=== PATIENT | female | born 1980 | race Caucasian/White ===

== ENCOUNTER 2022-06-22 11:36 | Emergency (ER) | payer MEDICAID, SELFPAY ==
[2022-06-22 11:41] VITALS: BP 120/83; PULSE 114; RESP 14; TEMP 36.7; O2SAT 98
--- NOTE | 2022-06-22 11:47 | ED_ITS ---
HPI - Abdominal Pain General: Chief Complaint: Abdominal Pain Stated Complaint: sent for CT, urinary pain Time Seen by Provider: 06/22/22 11:42 History of Present Illness: Ms. Soto is a 41-year-old lady without significant past medical history presenting to the emergency department due to abdominal pain. She notes symptoms began a few days ago and were gradual in onset initially more suprapubic in nature. They have persisted since worsened with some pain in the right lower quadrant. She endorses worsening with movement and bumps in the road on the way here. She presented to clinic and was referred to the emergency department for concern over appendicitis. Denies urinary symptoms. Does have a history of tubal ligation. She reports a few month history of GI symptoms however these has not been particularly worse lately. Has had low-grade fevers and generalized malaise. Intensity symptoms is moderate to severe. Course has worsened. No other specific changes in h ealth, exacerbating, or alleviating factors identified. Onset (ago): day(s) Pain Consistency: constant Location: RLQ and Suprapubic Severity: moderate Quality: stabbing and aching Radiation: R flank Migration to: no migration Exacerbating factors: movement Relieving factors: nothing Associated Symptoms: Reports fever(s) ( Low-grade ) and nausea Review of Systems General: Reports: 10 or more systems reviewed and unremarkable except in HPI and below Const: Reports: fever(s) ( Low-grade ) GI: Reports: nausea [facility] ED PFSH: Medical History No significant past medical history Surgical History History of tubal ligation Physical Exam Const: COMMON NORMALS: alert GENERAL APPEARANCE: cooperative and well developed HENMT: COMMON NORMALS: normocephalic and atraumatic HEAD & SCALP: normocephalic and atraumatic Eye: COMMON NORMALS: conjunctivae normal CONJUNCTIVA: Yes conjunctivae normal SCLERA: sclerae normal Neck/C-Spine: COMMON NORMALS: supple GENERAL: Yes trachea midline Resp: COMMON NORMALS: clear to auscultation bilaterally EFFORT & INSPECTION: Yes able to speak in complete sentences AUSCULTATION: clear to auscultation bilaterally Cardio: COMMON NORMALS: regular rhythm RATE: tachycardic RHYTHM: regular rhythm GI: COMMON NORMALS: Soft to palpation PALPATION: Yes Soft to palpation, Yes Tenderness to palpation present (GI), Yes Guarding due to palpation present (GI) and No Rigid due to palpation Extremity: GENERAL: Yes normal exam except as noted and No edema Neuro: COMMON NORMALS: moves all extremities SENSORIUM/ORIENTATION: Yes alert and No Orientation impaired Psych: COMMON NORMALS: mental status grossly normal and Normal thought process present THOUGHT PROCESS: Normal thought process present Course Vital Signs: Vital signs: Vital Signs Temperature 98.0 F 06/22/22 11:41 Pulse Rate 88 06/22/22 15:00 Respiratory Rate 14 06/22/22 15:00 Blood Pressure 123/83 06/22/22 15:00 Pulse Oximetry 96 06/22/22 15:00 Oxygen Delivery Me thod 06/22/22 15:00 MDM - Abdominal Pain Medical Decision Making 41-year-old lady presenting with right lower quadrant abdominal pain referred from clinic. Patient is quite tender on exam however she is nontoxic and there is no evidence of acute surgical abdomen. Labs with no leukocytosis, normal hemoglobin, mild thrombocytosis. Metabolic panel with mild evidence of dehydration, no evidence of urinary tract infection. CT abdomen pelvis demonstrate inflammatory changes of the pelvis more on the left concerning for colitis versus diverticulitis. Given physical exam findings in comparison to imaging and the identification of ovarian cyst I believe that ultrasound is also appropriate for evaluation of pelvic organs. There is no evidence of ovarian torsion. Incidental findings discussed with patient including need for further evaluation of liver lesion. Patient feels improved with fluids, analgesia, antiemetic. She is able to tolerate p.o. intake. Most likely etiology of patient's symptoms is diverticulitis which will be treated with antibiotics. The results of ED evaluation were discussed with the patient including prescriptions and/or symptomatic cares (if applicable) including appropriate and responsible use, followup plan, and return precautions. The patient verbalized understanding and felt safe for discharge. Medical Records I reviewed the patient's medical records. Lab Data I reviewed the patient's lab results. 06/22/22 12:15 06/22/22 12:15 Labs/Radiology: Radiology Impressions Abdomen/Pelvis CT 06/22/22 13:03 IMPRESSION: 1. Inflammatory changes in the pelvis. This is adjacent to the left lateral wall of the distal sigmoid colon. Likely mild colitis versus diverticulitis although no definite diverticula are seen in the region. There are diverticula in other areas. 2. Ovarian cysts. 3. Normal appendix. 4. Indeterminate liver mass. Consider nonemergent MRI for follow-up. Pelvis Ultrasound 06/22/22 14:16 IMPRESSION: 1. No acute findings. 2. Multi fibroid uterus. Laboratory Results WBC 8.6 10^3/uL (4.0-10.0) 06/22/22 12:15 RBC 4.40 10^6/uL (4.1-5.3) 06/22/22 12:15 Hgb 12.5 g/dL (11.5-15.3) 06/22/22 12:15 Hct 39.7 % (37.0-47.0) 06/22/22 12:15 MCV 90.2 fl (81-99) 06/22/22 12:15 MCH 28.4 pg (28.0-34.0) 06/22/22 12:15 MCHC 31.5 g/dL (30.0-36.0) 06/22/22 12:15 RDW 13.4 % (12.1-15.1) 06/22/22 12:15 Plt Count 448 10^3/cmm (130-400) H 06/22/22 12:15 MPV 9.7 fL (7.4-10.4) 06/22/22 12:15 Neut % (Auto) 69.6 % 06/22/22 12:15 Lymph % (Auto) 22.3 % 06/22/22 12:15 Brule % (Auto) 6.2 % 06/22/22 12:15 Eos % (Auto) 0.9 % 06/22/22 12:15 Baso % (Auto) 0.5 % 06/22/22 12:15 Neut # (Auto) 6.00 10^3/uL (1.8-7.7) 06/22/22 12:15 Lymph # (Auto) 1.9 10^3/uL (0.8-4.8) 06/22/22 12:15 Brule # (Auto) 0.5 10^3/uL (0.2-0.9) 06/22/22 12:15 Eos # (Auto) 0.1 10^3/uL (0.0-0.8) 06/22/22 12:15 Baso # (Auto) 0.0 10^3/uL (0.0-0.1) 06/22/22 12:15 Nucleated RBC % (auto) 0 % 06/22/22 12:15 Nucleated RBCs # 0.0 /100WBC 06/22/22 12:15 Sodium 134 mmol/L (136-145) L 06/22/22 12:15 Potassium 3.5 mmol/L (3.5-5.1) 06/22/22 12:15 Chloride 98 mmol/L (98-107) 06/22/22 12:15 Carbon Dioxide 23 mmol/L (22-29) 06/22/22 12:15 Anion Gap 16.5 (5-19) 06/22/22 12:15 BUN 7 mg/dL (6-20) 06/22/22 12:15 Creatinine 0.6 mg/dL (0.5-0.9) 06/22/22 12:15 GFR Calculation 109.1 mL/min (90-130) 06/22/22 12:15 Glucose 154 mg/dL (65-115) H 06/22/22 12:15 Calculated Osmolality 279 mOsm/kg (285-295) L 06/22/22 12:15 Lactate 2.4 mmol/L (0.5-2.2) H 06/22/22 12:15 Calcium 9.0 mg/dL (8.5-10.5) 06/22/22 12:15 Total Bilirubin 0.4 mg/dL (0.15-1.2) 06/22/22 12:15 AST 11 U/L (0-32) 06/22/22 12:15 ALT 11 U/L (0-33) 06/22/22 12:15 Alkaline Phosphatase 96 U/L (35-105) 06/22/22 12:15 Total Protein 7.2 g/dL (6.6-8.7) 06/22/22 12:15 Albumin 3.9 g/dL (3.5-5.2) 06/22/22 12:15 Globulin 3.3 g/dL (1.3-4.6) 06/22/22 12:15 Lipase 20 U/L (13-60) 06/22/22 12:15 HCG, Qual Negative (Negative) 06/22/22 12:31 Urine Color Dark yellow (Yellow) 06/22/22 12:31 Urine Appearance Clear (CLEAR) 06/22/22 12:31 Urine pH 5 (5-7) 06/22/22 12:31 Ur Specific Porter 1.020 (1.005-1.030) 06/22/22 12:31 Urine Protein Neg (Negative) 06/22/22 12:31 Urine Glucose (UA) Norm (Normal) 06/22/22 12:31 Urine Ketones Negative (Negative) 06/22/22 12:31 Urine Blood Neg (Negative) 06/22/22 12:31 Urine Nitrate Negative (Negative) 06/22/22 12:31 Urine Bilirubin Neg (Negative) 06/22/22 12:31 Urine Urobilinogen 1 mg/dL (Negative) H 06/22/22 12:31 Ur Leukocyte Esterase Negative (Negative) 06/22/22 12:31 Discharge Plan Discharge Patient Disposition: Home Clinical Impression: Diverticulitis, Lesion of liver greater than 1 cm in diameter Condition: Stable Prescriptions: New oxycodone 5 mg tablet 5 mg PO Q4H PRN (Reason: pain) Qty: 10 0RF amoxicillin-pot clavulanate 875-125 mg tablet 1 tab PO BID Qty: 20 0RF ondansetron HCl 4 mg tablet 4 mg PO TID PRN (Reason: nausea and vomiting) Qty: 15 0RF Discharge Orders: Discharge ED (Routine); Ordered 06/22/22 Ordered By: Roddy Mullins Referrals: Yonathan Gay FNP [Primary Care Provider] - Discharge Diet: Advance as tolerated and Clear Liquid Discharge Activity: Increase activity as tolerated Patient Instructions: Abdominal Pain (ED), Colitis (ED), Opioid Safety Activity Restrictions/Additional Instructions: Thank you for visiting the emergency department. You were seen and evaluated for abdominal pain. The exact cause of your symptoms is unclear though may be related to colitis or diverticulitis. This will be treated with antibiotics, pain medication, antinausea medication. Please ensure that you are staying hydrated. You may use [id number] medications such as acetaminophen and ibuprofen for pain however please do not exceed the daily recommended dosage as listed on the packaging and please keep in mind that many namebrand medications contain the same active ingredients. Please avoid these medications if previously instructed to do so by another physician due to other underlying medical condition. I recommend follow-up with your primary care provider. As discussed you do have a lesion on your liver that needs better characterization by outpatient MRI. Return to the emergency department for worsening or uncontrolled symptoms or anything else that you are concerned about a feel needs emergency department evaluation Coding Level of Care Code ED Destination Sign Repairer for Benjamin Patel Exam Comprehensive
[2022-06-22 12:53] LABS: Alanine Aminotransferase 11 U/L (0-33); Albumin Level 3.9 g/dL (3.5-5.2); Alkaline Phosphatase 96 U/L (35-105); Anion Gap 16.5 (5-19); Aspartate Amino Transferase 11 U/L (0-32); Blood Urea Nitrogen 7 mg/dL (6-20); Carbon Dioxide 23 mmol/L (22-29); Chloride 98 mmol/L (98-107); Creatinine Clr Calc Pharmacy 105.8513; Globulin 3.3 g/dL (1.3-4.6); Glomerular Filtration Rate 109.1 mL/min (90-130); Glucose 154 mg/dL (65-115); Lactate (Lactic Acid level) 2.4 mmol/L (0.5-2.2); Lipase 20 U/L (13-60); Osmolality Calculated 279 mOsm/kg (285-295); Potassium 3.5 mmol/L (3.5-5.1); Sodium 134 mmol/L (136-145); Total Bilirubin 0.4 mg/dL (0.15-1.2); Total Protein 7.2 g/dL (6.6-8.7)
[2022-06-22 12:55] LABS: Basophils % 0.5 %; Eosinophils # 0.1 10^3/uL (0.0-0.8); Eosinophils % 0.9 %; Hematocrit 39.7 % (37.0-47.0); Hemoglobin 12.5 g/dL (11.5-15.3); Lymphocytes # 1.9 10^3/uL (0.8-4.8); Lymphocytes % 22.3 %; Mean Corpuscular HGB Conc 31.5 g/dL (30.0-36.0); Mean Corpuscular Hemoglobin 28.4 pg (28.0-34.0); Mean Corpuscular Volume 90.2 fl (81-99); Mean Platelet Volume 9.7 fL (7.4-10.4); Monocytes # 0.5 10^3/uL (0.2-0.9); Monocytes % 6.2 %; Neutrophils % 69.6 %; Nucleated Red Blood Cells % 0 %; Platelet Count 448 10^3/cmm (130-400); Red Cell Distribution Width 13.4 % (12.1-15.1); White Blood Count 8.6 10^3/uL (4.0-10.0)
[2022-06-22 13:01] LABS: Add Urine Microscopic? NO; Charge for UA Resulting for Rev
--- NOTE | 2022-06-22 13:03 | CTR_ITS ---
PROCEDURE INFORMATION: Exam: CT Abdomen And Pelvis With Contrast Exam date and time: 06/22/2022 1:44 PM Age: 41 years old Clinical indication: Abdominal pain; Localized; Right lower quadrant (rlq); Additional info: Rlq pain, ? appy TECHNIQUE: Imaging protocol: Computed tomography of the abdomen and pelvis with contrast. Radiation optimization: All CT scans at this facility use at least one of these dose optimization techniques: automated exposure control; mA and/or kV adjustment per patient size (includes targeted exams where dose is matched to clinical indication); or iterative reconstruction. Contrast material: OMNI 350; Contrast volume: 100 ml; Contrast route: INTRAVENOUS (IV); Other protocol: This patient has received 0 known CTs and 0 known cardiac nuclear medicine studies in the 12 months prior to the current study. COMPARISON: No relevant prior studies available. RADIATION DOSE METRICS: Total DLP (mGy-cm): 427.5 FINDINGS: Liver: Moderately fatty enlarged liver 211 mm. Indeterminate liver mass 12 mm image 09/07. Gallbladder and bile ducts: Normal. No calcified stones. No ductal dilation. Pancreas: Normal. No ductal dilation. Spleen: Normal. No splenomegaly. Adrenal glands: Normal. No mass. Kidneys and ureters: Normal. No hydronephrosis. Stomach and bowel: Moderate retained feces. Inflammatory changes in the pelvis just to the left of the distal sigmoid colon. There are no diverticula in the region however, this could be mild diverticulitis versus a focal colitis. There is no abscess. There is no free or focal air. Appendix: Unremarkable right lower quadrant appendix. Intraperitoneal space: Unremarkable. No free air. No significant fluid collection. Vasculature: Unremarkable. No abdominal aortic aneurysm. Lymph nodes: Lymph nodes are seen in the mesentery near the diverticulitis measuring up to 7 mm. Urinary bladder: Unremarkable as visualized. Reproductive: Ovarian cysts bilaterally up to 17 mm and 18 mm on the right and 16 mm on the left. Bones/joints: Unremarkable. No acute fracture. Soft tissues: Unremarkable. CT/CT abdomen pelvis w con* [id number] IMPRESSION: 1. Inflammatory changes in the pelvis. This is adjacent to the left lateral wall of the distal sigmoid colon. Likely mild colitis versus diverticulitis although no definite diverticula are seen in the region. There are diverticula in other areas. 2. Ovarian cysts. 3. Normal appendix. 4. Indeterminate liver mass. Consider nonemergent MRI for follow-up.
[2022-06-22 13:07] VITALS: RESP 14; O2SAT 97
[2022-06-22] MEDS: morphine 4 mg/mL SDV 1 mL IVP (13:07)
[2022-06-22] MEDS: sodium chloride 0.9% 1,000 ML 999 ML IV (13:07)
[2022-06-22 13:24] LABS: HCG Qualitative Urine. Negative (Negative)
[2022-06-22 13:30] LABS: Bilirubin Urine Neg (Negative); Blood Urine Neg (Negative); Glucose Urine UA Norm (Normal); Ketones Urine Negative (Negative); Leukocyte Esterase Urine Negative (Negative); Nitrate Urine Negative (Negative); Protein Urine Neg (Negative); Urine Appearance Clear (CLEAR); Urine Color Dark Yellow (Yellow); Urobilinogen Urine 1 mg/dL (Negative); pH Urine 5 (5-7)
[2022-06-22 14:10] VITALS: RESP 14
--- NOTE | 2022-06-22 14:16 | USR_ITS ---
PROCEDURE INFORMATION: Exam: US Nonobstetric Pelvis; Complete Exam date and time: 06/22/2022 3:10 PM Age: 41 years old Clinical indication: Pelvic pain; Patient HX: Lmp 05/25/2022. 0; Additional info: Rlq pain, eval torsion TECHNIQUE: Imaging protocol: Transabdominal pelvic nonobstetric ultrasound. Complete exam. Real time ultrasound with image documentation. COMPARISON: CT abdomen pelvis w con* [id number] 06/22/2022 1:44 PM FINDINGS: Uterus: The uterus measures 10.2 x 5.3 x 6.1 cm. Subserosal fibroid noted along the posterior uterine body measuring 2.4 x 1.4 x 2.4 cm. There is an intramural fibroid at the uterine fundus measuring 1.3 x 1.1 x 1.6 cm. Intramural fibroid within the uterine body measures 0.8 x 0.5 x 0.8 cm. Endometrial stripe is normal measuring 7 mm in thickness. Right ovary/adnexa: The right ovary measures 2.3 x 1.8 x 2.2 cm. No mass. Normal blood flow. Left ovary/adnexa: The left ovary measures 3.2 x 2.0 x 2.7 cm. No mass. Normal blood flow. Intraperitoneal space: No intraperitoneal fluid. Urinary bladder: Normal. US/US pelvic complete* [id number] IMPRESSION: 1. No acute findings. 2. Multi fibroid uterus.
[2022-06-22 15:00] VITALS: BP 123/83; PULSE 88; RESP 14; O2SAT 96
== END 2022-06-22 17:12 | disposition home or self-care (01) ==
PROVIDERS: Emergency Provider Emergency Medicine; PCP Nurse Practitioner Family
DX: K57.92 Diverticulitis of intestine, part unspecified, without perforation or abscess without bleeding (principal); K76.9 Liver disease, unspecified
CPT/HCPCS: 36415; 74177; 76856; 80053; 81000; 81003; 81025; 83605; 83690; 85025; 87040; 96361; 96374; 99285; J2270; J7030; Q9967

== ENCOUNTER 2022-07-22 10:36 | Outpatient (CLI) | payer MEDICAID, SELFPAY ==
--- NOTE | 2022-07-22 11:07 | MR_ITS ---
WS: [id number] MRI OF THE ABDOMEN WITHOUT AND WITH GADOLINIUM ENHANCEMENT TECHNIQUE: Axial T2, dual Echo, axial 2-D fiesta, coronal 2-D fiesta, axial T1, and postgadolinium mu ltiplanar fat saturated imaging was obtained CLINICAL INFORMATION: OTHER SPECIFIED DZ OF LIVER COMPARISON: CT June 22, 2022 FINDINGS: Mild hepatomegaly. Diffuse fatty infiltration liver. Normal spleen. Normal GE junction. Normal gallbl adder. Normal portal vein and splenic vein. Adrenal glands are normal. Normal renal parenchymal enhan cement. No hydronephrosis. Celiac and SMA are patent. Normal caliber abdominal aorta. Again seen is the RIGHT hepatic lesion measuring approximately 1.4 cm unchanged with T2 hyperintensit y. Post gadolinium imaging demonstrates initial enhancement suspicious for flash cavernous hemangioma Additional smaller lesions in the dome of the liver and undersurface the RIGHT hepatic lobe with T2 h yperintensity in the more typical hemangioma enhancement pattern with peripheral globular enhancement . MR/MR abdomen wo/w con* [id number] Impression: 1. 1.4 cm RIGHT hepatic lesion with T2 hyperintensity. This demonstrates initi al enhancement and most likely represents flash hemangioma. If concern for meta static disease PET/CT to be performed. 2. Additional smaller T2 hyperintense lesions measuring approximately 10 mm. T 2 hyperintense lesions with a more typical hemangioma enhancement pattern invol ving the liver dome and undersurface of the RIGHT hepatic lobe near the IVC. Pe ripheral globular enhancement typical for benign cavernous hemangioma. 3. Hepatomegaly with diffuse fatty infiltration liver.
[2022-07-22] MEDS: gadobenate dimeglumine 20 mL vial IV (11:59)
== END 2022-07-22 10:37 | disposition home or self-care (01) ==
LOC: RAD 10:39
PROVIDERS: PCP Nurse Practitioner Family; Visit Provider Nurse Practitioner Family
DX: K76.89 Other specified diseases of liver (principal)
CPT/HCPCS: 74183; A9577

== ENCOUNTER 2022-12-11 14:00 | Oncology outpatient (recurring) (ONCR) | payer MEDICAID, SELFPAY ==
[2022-12-09 08:20] VITALS: BP 113/75; PULSE 76; RESP 18; TEMP 37.1; O2SAT 100
[2022-12-09 08:40] LABS: Basophils # 0.1 10^3/uL (0.0-0.1); Eosinophils # 0.1 10^3/uL (0.0-0.8); Eosinophils % 1.8 %; Hematocrit 35.5 % (37.0-47.0); Hemoglobin 11.2 g/dL (11.5-15.3); Lymphocytes # 1.9 10^3/uL (0.8-4.8); Lymphocytes % 30.5 %; Mean Corpuscular HGB Conc 31.5 g/dL (30.0-36.0); Mean Corpuscular Hemoglobin 26.4 pg (28.0-34.0); Mean Corpuscular Volume 83.7 fl (81-99); Monocytes # 0.5 10^3/uL (0.2-0.9); Monocytes % 8.6 %; Neutrophils # 3.55 10^3/uL (1.8-7.7); Neutrophils % 57.8 %; Nucleated Red Blood Cells % 0 %; Platelet Count 290 10^3/cmm (130-400); Red Blood Count 4.24 10^6/uL (4.1-5.3); Red Cell Distribution Width 15.1 % (12.1-15.1); White Blood Count 6.1 10^3/uL (4.0-10.0)
[2022-12-09 09:23] LABS: Carcinoembryonic Antigen 1.4 ng/mL (0.0-4.7)
[2022-12-09 09:34] LABS: Alanine Aminotransferase 14 U/L (0-33); Albumin Level 3.8 g/dL (3.5-5.2); Alkaline Phosphatase 72 U/L (35-105); Anion Gap 15.6 (5-19); Aspartate Amino Transferase 13 U/L (0-32); Blood Urea Nitrogen 10 mg/dL (6-20); Calcium 8.7 mg/dL (8.5-10.5); Carbon Dioxide 22 mmol/L (22-29); Chloride 105 mmol/L (98-107); Creatinine Clr Calc Pharmacy 74.5586; Globulin 2.6 g/dL (1.3-4.6); Glomerular Filtration Rate 77.9 mL/min (90-130); Glucose 98 mg/dL (65-115); Osmolality Calculated 287 mOsm/kg (285-295); Potassium 3.6 mmol/L (3.5-5.1); Sodium 139 mmol/L (136-145); Total Bilirubin 0.2 mg/dL (0.15-1.2); Total Protein 6.4 g/dL (6.6-8.7)
[2022-12-09] MEDS: dextrose 5% 250 ML 75 ML IV (10:56)
[2022-12-09] MEDS: palonosetron 0.25 mg/5 mL SDV IVP (10:56)
[2022-12-09 11:00] VITALS: BMI 24.9
[2022-12-09] MEDS: oxaliplatin 100 MG, oxaliplatin 34 MG in dextrose 5% 250 ML 69.2 MG IV (11:43)
[2022-12-09] MEDS: fluorouraciL 3,800 MG, elastomeric pump 1 PUMP in sodium chloride 0.9% (100 ml) 16 ML IV (15:05)
[2022-12-09 15:15] VITALS: BP 124/83; PULSE 91; RESP 16; TEMP 37.1; O2SAT 98
[2022-12-11 15:46] VITALS: BP 115/78; PULSE 78; TEMP 36.8; O2SAT 100
== END 2022-12-22 23:59 | disposition home or self-care (01) ==
PROVIDERS: Nurse Practitioner Family; PCP Nurse Practitioner Family; Visit Provider Internal Medicine Medical Oncology
DX: C18.7 Malignant neoplasm of sigmoid colon (principal)
CPT/HCPCS: 80053; 82378; 85025; 96367; 96375; 96413; 96415; 96416; 96523; J0640; J1100; J1642; J2469; J7060; J9190; J9263

== ENCOUNTER 2023-01-22 13:30 | Oncology outpatient (recurring) (ONCR) | payer MEDICAID, SELFPAY ==
[2022-12-23 08:07] VITALS: BMI 24.9
[2022-12-23 08:09] VITALS: BP 116/76; PULSE 91; RESP 18; TEMP 36.6; O2SAT 99
[2022-12-23 08:21] LABS: Basophils # 0.1 10^3/uL (0.0-0.1); Basophils % 1.8 %; Eosinophils # 0.2 10^3/uL (0.0-0.8); Eosinophils % 3.2 %; Hematocrit 36.8 % (37.0-47.0); Hemoglobin 11.6 g/dL (11.5-15.3); Lymphocytes # 1.6 10^3/uL (0.8-4.8); Lymphocytes % 33.2 %; Mean Corpuscular HGB Conc 31.5 g/dL (30.0-36.0); Mean Corpuscular Hemoglobin 26.3 pg (28.0-34.0); Mean Corpuscular Volume 83.4 fl (81-99); Mean Platelet Volume 9.6 fL (7.4-10.4); Monocytes # 0.5 10^3/uL (0.2-0.9); Monocytes % 10.5 %; Neutrophils # 2.51 10^3/uL (1.8-7.7); Neutrophils % 50.9 %; Nucleated Red Blood Cells % 0 %; Platelet Count 207 10^3/cmm (130-400); Red Blood Count 4.41 10^6/uL (4.1-5.3); Red Cell Distribution Width 14.9 % (12.1-15.1); White Blood Count 4.9 10^3/uL (4.0-10.0)
[2022-12-23 08:42] LABS: Alanine Aminotransferase 22 U/L (0-33); Albumin Level 3.9 g/dL (3.5-5.2); Alkaline Phosphatase 78 U/L (35-105); Anion Gap 15.7 (5-19); Aspartate Amino Transferase 19 U/L (0-32); Blood Urea Nitrogen 6 mg/dL (6-20); Calcium 8.9 mg/dL (8.5-10.5); Carbon Dioxide 24 mmol/L (22-29); Chloride 105 mmol/L (98-107); Creatinine Clr Calc Pharmacy 74.5586; Globulin 2.8 g/dL (1.3-4.6); Glomerular Filtration Rate 77.9 mL/min (90-130); Glucose 120 mg/dL (65-115); Osmolality Calculated 291 mOsm/kg (285-295); Potassium 3.7 mmol/L (3.5-5.1); Sodium 141 mmol/L (136-145); Total Bilirubin 0.2 mg/dL (0.15-1.2); Total Protein 6.7 g/dL (6.6-8.7)
[2022-12-23 10:27] VITALS: BP 124/78; PULSE 74; RESP 16; TEMP 36.6; O2SAT 99
[2022-12-23 10:49] LABS: Iron 33 ug/dL (37-145); Percent Saturation 10.3 % (20-50); Total Iron Binding Capacity 319 mcg/dl; Unsaturated Iron Binding 286 ug/dL (112-347)
[2022-12-23] MEDS: dextrose 5% 250 ML 100 ML IV (10:57)
[2022-12-23] MEDS: palonosetron 0.25 mg/5 mL SDV IVP (10:58)
[2022-12-23] MEDS: DEXTROSE 5% IV (11:31)
[2022-12-23] MEDS: OXALIPLATIN IV (11:31)
[2022-12-23 13:40] VITALS: BP 126/78; PULSE 80; RESP 16; TEMP 36.4; O2SAT 98
[2022-12-23] MEDS: fluorouraciL 3,800 MG, elastomeric pump 1 PUMP in sodium chloride 0.9% (100 ml) 16 ML IV (13:41)
[2022-12-25 14:06] VITALS: BP 115/81; PULSE 71; RESP 18; TEMP 36.6; O2SAT 99
[2022-12-25 14:18] VITALS: BP 132/72; PULSE 84; RESP 18; TEMP 36.7; O2SAT 98
[2023-01-06 08:25] VITALS: BMI 25.1
[2023-01-06 08:26] VITALS: BP 110/74; PULSE 90; RESP 18; TEMP 36.7; O2SAT 99
[2023-01-06 08:38] LABS: Basophils # 0.1 10^3/uL (0.0-0.1); Basophils % 1.3 %; Eosinophils # 0.3 10^3/uL (0.0-0.8); Eosinophils % 5.3 %; Hematocrit 35.6 % (37.0-47.0); Hemoglobin 11.5 g/dL (11.5-15.3); Lymphocytes # 1.9 10^3/uL (0.8-4.8); Lymphocytes % 31.1 %; Mean Corpuscular HGB Conc 32.3 g/dL (30.0-36.0); Mean Corpuscular Hemoglobin 26.6 pg (28.0-34.0); Mean Corpuscular Volume 82.4 fl (81-99); Mean Platelet Volume 9.5 fL (7.4-10.4); Monocytes # 0.5 10^3/uL (0.2-0.9); Monocytes % 8.2 %; Neutrophils # 3.33 10^3/uL (1.8-7.7); Neutrophils % 53.6 %; Nucleated Red Blood Cells % 0 %; Platelet Count 162 10^3/cmm (130-400); Red Blood Count 4.32 10^6/uL (4.1-5.3); Red Cell Distribution Width 14.7 % (12.1-15.1); White Blood Count 6.2 10^3/uL (4.0-10.0)
[2023-01-06 09:00] LABS: Alanine Aminotransferase 20 U/L (0-33); Albumin Level 3.9 g/dL (3.5-5.2); Alkaline Phosphatase 79 U/L (35-105); Anion Gap 17.6 (5-19); Aspartate Amino Transferase 19 U/L (0-32); Blood Urea Nitrogen 10 mg/dL (6-20); Calcium 8.9 mg/dL (8.5-10.5); Carbon Dioxide 23 mmol/L (22-29); Chloride 104 mmol/L (98-107); Globulin 2.7 g/dL (1.3-4.6); Glomerular Filtration Rate 90.9 mL/min (90-130); Glucose 144 mg/dL (65-115); Osmolality Calculated 294 mOsm/kg (285-295); Potassium 3.6 mmol/L (3.5-5.1); Sodium 141 mmol/L (136-145); Total Bilirubin 0.2 mg/dL (0.15-1.2); Total Protein 6.6 g/dL (6.6-8.7)
[2023-01-06] MEDS: dextrose 5% 250 ML 75 ML IV (10:30)
[2023-01-06] MEDS: palonosetron 0.25 mg/5 mL SDV IVP (11:02)
[2023-01-06] MEDS: DEXTROSE 5% IV (11:12)
[2023-01-06] MEDS: OXALIPLATIN IV (11:12)
[2023-01-06] MEDS: fluorouraciL 3,800 MG, elastomeric pump 1 PUMP in sodium chloride 0.9% (100 ml) 16 ML IV (15:40)
[2023-01-06 16:19] VITALS: BP 124/82; PULSE 88; RESP 18; TEMP 36.8; O2SAT 98
[2023-01-08 13:58] VITALS: BP 118/76; PULSE 76; RESP 16; TEMP 36.8; O2SAT 99
[2023-01-20 07:57] VITALS: BP 115/77; PULSE 77; RESP 18; TEMP 36.3; O2SAT 98; BMI 24.5
[2023-01-20 08:19] LABS: Basophils # 0.1 10^3/uL (0.0-0.1); Basophils % 1.5 %; Eosinophils # 0.1 10^3/uL (0.0-0.8); Eosinophils % 2.4 %; Hematocrit 36.8 % (36-47); Lymphocytes # 1.5 10^3/uL (0.8-4.8); Lymphocytes % 28.7 %; Mean Corpuscular HGB Conc 32.1 g/dL (30-55); Mean Corpuscular Hemoglobin 27.3 pg (27-33); Mean Corpuscular Volume 85.2 fl (85-98); Mean Platelet Volume 9.6 fL (7.4-10.4); Monocytes # 0.5 10^3/uL (0.2-0.9); Monocytes % 9.9 %; Neutrophils # 3.03 10^3/uL (1.8-7.7); Neutrophils % 56.9 %; Nucleated Red Blood Cells % 0 %; Platelet Count 159 10^3/cmm (157-399); Red Blood Count 4.32 10^6/uL (3.85-5.65); Red Cell Distribution Width 16.5 % (12.1-15.1); White Blood Count 5.33 10^3/uL (3.29-11.43)
[2023-01-20 08:36] LABS: Alanine Aminotransferase 19 U/L (0-33); Alkaline Phosphatase 72 U/L (35-105); Anion Gap 12.5 (5-19); Aspartate Amino Transferase 17 U/L (0-32); Blood Urea Nitrogen 8 mg/dL (6-20); Calcium 8.5 mg/dL (8.5-10.5); Carbon Dioxide 26 mmol/L (22-29); Chloride 106 mmol/L (98-107); Globulin 2.5 g/dL (1.3-4.6); Glomerular Filtration Rate 90.9 mL/min (90-130); Glucose 95 mg/dL (65-115); Osmolality Calculated 290 mOsm/kg (285-295); Potassium 3.5 mmol/L (3.5-5.1); Sodium 141 mmol/L (136-145); Total Bilirubin 0.2 mg/dL (0.15-1.2); Total Protein 6.5 g/dL (6.6-8.7)
[2023-01-20] MEDS: dextrose 5% 250 ML 75 ML IV (09:59)
[2023-01-20] MEDS: palonosetron 0.25 mg/5 mL SDV IVP (10:00)
[2023-01-20] MEDS: fluorouraciL 3,800 MG, elastomeric pump 1 PUMP in sodium chloride 0.9% (100 ml) 16 ML IV (12:36)
[2023-01-20 12:40] VITALS: BP 120/75; PULSE 69; RESP 16; TEMP 36.2; O2SAT 98
== END 2023-01-22 23:59 | disposition home or self-care (01) ==
PROVIDERS: Nurse Practitioner Family; PCP Nurse Practitioner Family; Visit Provider Internal Medicine Medical Oncology
DX: Z45.1 Encounter for adjustment and management of infusion pump (principal)
CPT/HCPCS: 80053; 83540; 83550; 85025; 96367; 96368; 96375; 96413; 96415; 96416; 96523; J0640; J1100; J1642; J2469; J7060; J9190; J9263

== ENCOUNTER 2023-02-19 14:00 | Oncology outpatient (recurring) (ONCR) | payer MEDICAID, SELFPAY ==
[2023-02-03 08:01] VITALS: BP 103/72; PULSE 78; RESP 18; TEMP 36.3; O2SAT 100; BMI 24.9
[2023-02-03 08:13] LABS: Basophils # 0.1 10^3/uL (0.0-0.1); Basophils % 1.7 %; Eosinophils # 0.2 10^3/uL (0.0-0.8); Eosinophils % 3.2 %; Hematocrit 36.5 % (36-47); Lymphocytes # 1.7 10^3/uL (0.8-4.8); Lymphocytes % 36.5 %; Mean Corpuscular HGB Conc 32.1 g/dL (30-55); Mean Corpuscular Hemoglobin 27.6 pg (27-33); Mean Corpuscular Volume 86.1 fl (85-98); Mean Platelet Volume 9.9 fL (7.4-10.4); Monocytes # 0.5 10^3/uL (0.2-0.9); Neutrophils # 2.25 10^3/uL (1.8-7.7); Neutrophils % 48.2 %; Nucleated Red Blood Cells % 0 %; Platelet Count 132 10^3/cmm (157-399); Red Blood Count 4.24 10^6/uL (3.85-5.65); Red Cell Distribution Width 17.6 % (12.1-15.1); White Blood Count 4.68 10^3/uL (3.29-11.43)
[2023-02-03 08:44] LABS: Alanine Aminotransferase 20 U/L (0-33); Albumin Level 4.1 g/dL (3.5-5.2); Alkaline Phosphatase 75 U/L (35-105); Anion Gap 12.6 (5-19); Aspartate Amino Transferase 21 U/L (0-32); Blood Urea Nitrogen 8 mg/dL (6-20); Calcium 8.7 mg/dL (8.5-10.5); Carbon Dioxide 25 mmol/L (22-29); Chloride 107 mmol/L (98-107); Creatinine Clr Calc Pharmacy 74.5586; Globulin 2.2 g/dL (1.3-4.6); Glomerular Filtration Rate 77.9 mL/min (90-130); Glucose 115 mg/dL (65-115); Osmolality Calculated 291 mOsm/kg (285-295); Potassium 3.6 mmol/L (3.5-5.1); Sodium 141 mmol/L (136-145); Total Bilirubin 0.3 mg/dL (0.15-1.2); Total Protein 6.3 g/dL (6.6-8.7)
[2023-02-03] MEDS: dextrose 5% 250 ML 75 ML IV (10:09)
[2023-02-03] MEDS: palonosetron 0.25 mg/5 mL SDV IVP (10:10)
[2023-02-03] MEDS: fluorouraciL 3,800 MG, elastomeric pump 1 PUMP in sodium chloride 0.9% (100 ml) 16 ML IV (12:42)
[2023-02-03 12:45] VITALS: BP 113/76; PULSE 70; RESP 16; TEMP 37.1; O2SAT 99
[2023-02-17 08:48] VITALS: BP 122/82; PULSE 80; RESP 16; TEMP 36.8; O2SAT 98
[2023-02-17 09:03] LABS: Basophils % 0.9 %; Eosinophils # 0.1 10^3/uL (0.0-0.8); Eosinophils % 1.3 %; Hematocrit 37.2 % (36-47); Lymphocytes # 1.3 10^3/uL (0.8-4.8); Lymphocytes % 27.5 %; Mean Corpuscular HGB Conc 32.5 g/dL (30-55); Mean Corpuscular Hemoglobin 28.4 pg (27-33); Mean Corpuscular Volume 87.3 fl (85-98); Mean Platelet Volume 9.1 fL (7.4-10.4); Monocytes # 0.6 10^3/uL (0.2-0.9); Neutrophils % 57.9 %; Nucleated Red Blood Cells % 0 %; Platelet Count 153 10^3/cmm (157-399); Red Blood Count 4.26 10^6/uL (3.85-5.65); Red Cell Distribution Width 17.9 % (12.1-15.1); White Blood Count 4.66 10^3/uL (3.29-11.43)
[2023-02-17 09:32] LABS: Alanine Aminotransferase 19 U/L (0-33); Albumin Level 3.7 g/dL (3.5-5.2); Alkaline Phosphatase 94 U/L (35-105); Anion Gap 12.4 (5-19); Aspartate Amino Transferase 22 U/L (0-32); Blood Urea Nitrogen 7 mg/dL (6-20); Calcium 8.8 mg/dL (8.5-10.5); Carbon Dioxide 27 mmol/L (22-29); Chloride 104 mmol/L (98-107); Globulin 2.8 g/dL (1.3-4.6); Glomerular Filtration Rate 90.9 mL/min (90-130); Glucose 97 mg/dL (65-115); Osmolality Calculated 288 mOsm/kg (285-295); Potassium 3.4 mmol/L (3.5-5.1); Sodium 140 mmol/L (136-145); Total Bilirubin 0.3 mg/dL (0.15-1.2); Total Protein 6.5 g/dL (6.6-8.7)
[2023-02-17] MEDS: dextrose 5% 250 ML 75 ML IV (10:46)
[2023-02-17] MEDS: palonosetron 0.25 mg/5 mL SDV IVP (10:49)
[2023-02-17] MEDS: fluorouraciL 3,800 MG, elastomeric pump 1 PUMP in sodium chloride 0.9% (100 ml) 16 ML IV (14:10)
[2023-02-17 14:26] VITALS: BP 123/76; PULSE 87; RESP 18; TEMP 36.9; O2SAT 98
[2023-02-19 13:05] VITALS: BP 120/75; PULSE 101; RESP 18; TEMP 36.6; O2SAT 98
== END 2023-02-21 23:59 | disposition home or self-care (01) ==
PROVIDERS: PCP Nurse Practitioner Family; Visit Provider Internal Medicine Medical Oncology
DX: Z45.1 Encounter for adjustment and management of infusion pump (principal)
CPT/HCPCS: 80053; 85025; 96365; 96366; 96367; 96368; 96375; 96413; 96415; 96416; 96523; J0640; J1100; J1642; J2469; J7060; J9190; J9263

== ENCOUNTER 2023-03-19 13:30 | Oncology outpatient (recurring) (ONCR) | payer MEDICAID, SELFPAY ==
[2023-03-03 09:16] VITALS: BP 116/75; PULSE 74; RESP 16; TEMP 36.4; O2SAT 96
[2023-03-03 09:34] LABS: Basophils % 1.1 %; Eosinophils # 0.1 10^3/uL (0.0-0.8); Eosinophils % 1.6 %; Hematocrit 36.7 % (36-47); Lymphocytes # 1.4 10^3/uL (0.8-4.8); Mean Corpuscular Hemoglobin 29.5 pg (27-33); Mean Corpuscular Volume 89.5 fl (85-98); Mean Platelet Volume 9.6 fL (7.4-10.4); Monocytes # 0.6 10^3/uL (0.2-0.9); Monocytes % 15.3 %; Neutrophils # 1.61 10^3/uL (1.8-7.7); Nucleated Red Blood Cells % 0 %; Platelet Count 151 10^3/cmm (157-399); Red Cell Distribution Width 18.4 % (12.1-15.1); White Blood Count 3.66 10^3/uL (3.29-11.43)
[2023-03-03 10:00] LABS: Carcinoembryonic Antigen 1.6 ng/mL (0.0-4.7)
[2023-03-03 10:11] LABS: Alanine Aminotransferase 22 U/L (0-33); Albumin Level 4.2 g/dL (3.5-5.2); Alkaline Phosphatase 96 U/L (35-105); Anion Gap 13.9 (5-19); Aspartate Amino Transferase 23 U/L (0-32); Blood Urea Nitrogen 8 mg/dL (6-20); Calcium 8.8 mg/dL (8.5-10.5); Carbon Dioxide 25 mmol/L (22-29); Chloride 107 mmol/L (98-107); Globulin 2.8 g/dL (1.3-4.6); Glomerular Filtration Rate 90.9 mL/min (90-130); Glucose 93 mg/dL (65-115); Osmolality Calculated 292 mOsm/kg (285-295); Potassium 3.9 mmol/L (3.5-5.1); Sodium 142 mmol/L (136-145); Total Bilirubin 0.4 mg/dL (0.15-1.2)
[2023-03-03] MEDS: dextrose 5% 250 ML 75 ML IV (11:22)
[2023-03-03] MEDS: palonosetron 0.25 mg/5 mL SDV IVP (11:23)
[2023-03-03 12:24] VITALS: BP 120/76; PULSE 74; RESP 16; TEMP 36.9; O2SAT 99
[2023-03-03] MEDS: fluorouraciL 3,800 MG, elastomeric pump 1 PUMP in sodium chloride 0.9% (100 ml) 16 ML IV (12:26)
[2023-03-05 11:05] VITALS: BP 115/78; PULSE 67; RESP 16; TEMP 36.1; O2SAT 99
[2023-03-17 09:02] VITALS: BP 109/71; PULSE 79; RESP 16; TEMP 36.6; O2SAT 95
[2023-03-17 09:18] LABS: Basophils # 0.1 10^3/uL (0.0-0.1); Basophils % 1.3 %; Eosinophils # 0.1 10^3/uL (0.0-0.8); Eosinophils % 1.9 %; Hematocrit 36.4 % (36-47); Lymphocytes # 1.8 10^3/uL (0.8-4.8); Lymphocytes % 37.6 %; Mean Corpuscular HGB Conc 32.4 g/dL (30-55); Mean Corpuscular Hemoglobin 29.8 pg (27-33); Mean Corpuscular Volume 91.9 fl (85-98); Mean Platelet Volume 9.5 fL (7.4-10.4); Monocytes # 0.4 10^3/uL (0.2-0.9); Monocytes % 9.2 %; Neutrophils # 2.32 10^3/uL (1.8-7.7); Neutrophils % 49.6 %; Nucleated Red Blood Cells % 0 %; Platelet Count 173 10^3/cmm (157-399); Red Blood Count 3.96 10^6/uL (3.85-5.65); Red Cell Distribution Width 18.4 % (12.1-15.1); White Blood Count 4.68 10^3/uL (3.29-11.43)
[2023-03-17 09:40] LABS: Alanine Aminotransferase 20 U/L (0-33); Albumin Level 3.9 g/dL (3.5-5.2); Alkaline Phosphatase 88 U/L (35-105); Anion Gap 10.6 (5-19); Aspartate Amino Transferase 22 U/L (0-32); Blood Urea Nitrogen 8 mg/dL (6-20); Carbon Dioxide 27 mmol/L (22-29); Chloride 107 mmol/L (98-107); Globulin 2.6 g/dL (1.3-4.6); Glomerular Filtration Rate 90.9 mL/min (90-130); Glucose 122 mg/dL (65-115); Osmolality Calculated 292 mOsm/kg (285-295); Potassium 3.6 mmol/L (3.5-5.1); Sodium 141 mmol/L (136-145); Total Bilirubin 0.3 mg/dL (0.15-1.2); Total Protein 6.5 g/dL (6.6-8.7)
[2023-03-17] MEDS: dextrose 5% 250 ML 75 ML IV (11:04)
[2023-03-17] MEDS: palonosetron 0.25 mg/5 mL SDV IVP (11:04)
[2023-03-17] MEDS: fluorouraciL 3,800 MG, elastomeric pump 1 PUMP in sodium chloride 0.9% (100 ml) 16 ML IV (12:29)
[2023-03-17 12:33] VITALS: BP 118/77; PULSE 69; RESP 16; TEMP 36.6; O2SAT 98
[2023-03-19 13:18] VITALS: BP 105/70; PULSE 69; RESP 16; TEMP 36; O2SAT 99
== END 2023-03-24 23:59 | disposition home or self-care (01) ==
PROVIDERS: PCP Nurse Practitioner Family; Visit Provider Internal Medicine Medical Oncology
DX: Z45.1 Encounter for adjustment and management of infusion pump (principal)
CPT/HCPCS: 36591; 80053; 82378; 85025; 96365; 96367; 96375; 96416; 96523; J0640; J1100; J1642; J2469; J7060; J9190

== ENCOUNTER 2023-04-22 13:00 | Oncology outpatient (recurring) (ONCR) | payer MEDICAID, SELFPAY ==
[2023-03-31 08:41] VITALS: BP 108/76; PULSE 76; RESP 16; TEMP 36.8; O2SAT 98
[2023-03-31 09:00] LABS: Basophils # 0.1 10^3/uL (0.0-0.1); Basophils % 1.5 %; Eosinophils # 0.1 10^3/uL (0.0-0.8); Eosinophils % 2.6 %; Hematocrit 36.9 % (36-47); Lymphocytes # 1.5 10^3/uL (0.8-4.8); Lymphocytes % 32.3 %; Mean Corpuscular HGB Conc 33.1 g/dL (30-55); Mean Corpuscular Hemoglobin 31.3 pg (27-33); Mean Corpuscular Volume 94.6 fl (85-98); Mean Platelet Volume 10.2 fL (7.4-10.4); Monocytes # 0.4 10^3/uL (0.2-0.9); Monocytes % 8.3 %; Neutrophils # 2.56 10^3/uL (1.8-7.7); Neutrophils % 54.7 %; Nucleated Red Blood Cells % 0 %; Platelet Count 182 10^3/cmm (157-399); Red Cell Distribution Width 17.7 % (12.1-15.1); White Blood Count 4.68 10^3/uL (3.29-11.43)
[2023-03-31 09:27] LABS: Carcinoembryonic Antigen 1.7 ng/mL (0.0-4.7)
[2023-03-31 09:38] LABS: Alanine Aminotransferase 18 U/L (0-33); Albumin Level 4.3 g/dL (3.5-5.2); Alkaline Phosphatase 82 U/L (35-105); Anion Gap 15.1 (5-19); Aspartate Amino Transferase 20 U/L (0-32); Blood Urea Nitrogen 8 mg/dL (6-20); Carbon Dioxide 25 mmol/L (22-29); Chloride 108 mmol/L (98-107); Globulin 2.4 g/dL (1.3-4.6); Glomerular Filtration Rate 108.6 mL/min (90-130); Glucose 93 mg/dL (65-115); Osmolality Calculated 296 mOsm/kg (285-295); Potassium 4.1 mmol/L (3.5-5.1); Sodium 144 mmol/L (136-145); Total Bilirubin 0.3 mg/dL (0.15-1.2); Total Protein 6.7 g/dL (6.6-8.7)
[2023-03-31] MEDS: dextrose 5% 250 ML 75 ML IV (10:42)
[2023-03-31] MEDS: palonosetron 0.25 mg/5 mL SDV IVP (10:42)
[2023-03-31] MEDS: fluorouraciL 3,800 MG, elastomeric pump 1 PUMP in sodium chloride 0.9% (100 ml) 16 ML IV (13:47)
[2023-03-31 14:00] VITALS: BP 116/75; PULSE 75; RESP 16; TEMP 36.6; O2SAT 98
[2023-04-20 09:14] VITALS: BP 110/75; PULSE 76; RESP 16; TEMP 36.6; O2SAT 98
[2023-04-20 09:38] LABS: Basophils # 0.1 10^3/uL (0.0-0.1); Eosinophils # 0.1 10^3/uL (0.0-0.8); Eosinophils % 2.5 %; Hematocrit 38.6 % (36-47); Lymphocytes # 1.6 10^3/uL (0.8-4.8); Lymphocytes % 34.2 %; Mean Corpuscular HGB Conc 32.4 g/dL (30-55); Mean Corpuscular Hemoglobin 30.9 pg (27-33); Mean Corpuscular Volume 95.5 fl (85-98); Monocytes # 0.6 10^3/uL (0.2-0.9); Monocytes % 12.1 %; Neutrophils # 2.38 10^3/uL (1.8-7.7); Neutrophils % 49.8 %; Nucleated Red Blood Cells % 0 %; Platelet Count 252 10^3/cmm (157-399); Red Blood Count 4.04 10^6/uL (3.85-5.65); Red Cell Distribution Width 15.1 % (12.1-15.1); White Blood Count 4.79 10^3/uL (3.29-11.43)
[2023-04-20 10:01] LABS: Alanine Aminotransferase 19 U/L (0-33); Alkaline Phosphatase 96 U/L (35-105); Anion Gap 12.5 (5-19); Aspartate Amino Transferase 21 U/L (0-32); Blood Urea Nitrogen 11 mg/dL (6-20); Carbon Dioxide 26 mmol/L (22-29); Chloride 105 mmol/L (98-107); Creatinine Clr Calc Pharmacy 85.6211; Globulin 2.5 g/dL (1.3-4.6); Glomerular Filtration Rate 90.9 mL/min (90-130); Glucose 102 mg/dL (65-115); Osmolality Calculated 290 mOsm/kg (285-295); Potassium 3.5 mmol/L (3.5-5.1); Sodium 140 mmol/L (136-145); Total Bilirubin 0.2 mg/dL (0.15-1.2); Total Protein 6.5 g/dL (6.6-8.7)
[2023-04-20] MEDS: dextrose 5% 250 ML 75 ML IV (11:17)
[2023-04-20] MEDS: palonosetron 0.25 mg/5 mL SDV IVP (11:19)
[2023-04-20] MEDS: fluorouraciL 3,800 MG, elastomeric pump 1 PUMP in sodium chloride 0.9% (100 ml) 16 ML IV (14:33)
[2023-04-20 14:40] VITALS: BP 122/83; PULSE 87; RESP 16; TEMP 36.8; O2SAT 99
[2023-04-22 13:05] VITALS: BP 114/78; PULSE 75; RESP 16; TEMP 36.2; O2SAT 100
== END 2023-04-23 23:59 | disposition home or self-care (01) ==
PROVIDERS: Internal Medicine; PCP Nurse Practitioner Family; Visit Provider Radiology Radiation Oncology
DX: Z45.1 Encounter for adjustment and management of infusion pump (principal)
CPT/HCPCS: 80053; 82378; 85025; 96367; 96368; 96375; 96413; 96415; 96416; 96523; J0640; J1100; J1642; J2469; J7060; J9190; J9263

== ENCOUNTER 2023-05-21 13:00 | Oncology outpatient (recurring) (ONCR) | payer MEDICAID, SELFPAY ==
[2023-05-04 09:11] VITALS: BP 124/83; PULSE 76; RESP 16; TEMP 36.4; O2SAT 98
[2023-05-04 10:04] LABS: Basophils # 0.1 10^3/uL (0.0-0.1); Eosinophils # 0.1 10^3/uL (0.0-0.8); Eosinophils % 2.7 %; Hematocrit 37.8 % (36-47); Lymphocytes # 1.8 10^3/uL (0.8-4.8); Lymphocytes % 36.1 %; Mean Corpuscular HGB Conc 32.5 g/dL (30-55); Mean Corpuscular Hemoglobin 31.1 pg (27-33); Mean Corpuscular Volume 95.5 fl (85-98); Mean Platelet Volume 10.2 fL (7.4-10.4); Monocytes # 0.6 10^3/uL (0.2-0.9); Monocytes % 11.3 %; Neutrophils # 2.35 10^3/uL (1.8-7.7); Neutrophils % 48.5 %; Nucleated Red Blood Cells % 0 %; Platelet Count 171 10^3/cmm (157-399); Red Blood Count 3.96 10^6/uL (3.85-5.65); White Blood Count 4.85 10^3/uL (3.29-11.43)
[2023-05-04 11:39] LABS: Carcinoembryonic Antigen 1.9 ng/mL (0.0-4.7)
[2023-05-04 11:52] LABS: Alanine Aminotransferase 20 U/L (0-33); Alkaline Phosphatase 97 U/L (35-105); Anion Gap 15.8 (5-19); Aspartate Amino Transferase 24 U/L (0-32); Blood Urea Nitrogen 8 mg/dL (6-20); Calcium 9.1 mg/dL (8.5-10.5); Carbon Dioxide 23 mmol/L (22-29); Chloride 107 mmol/L (98-107); Globulin 2.7 g/dL (1.3-4.6); Glomerular Filtration Rate 108.6 mL/min (90-130); Glucose 91 mg/dL (65-115); Osmolality Calculated 292 mOsm/kg (285-295); Potassium 3.8 mmol/L (3.5-5.1); Sodium 142 mmol/L (136-145); Total Bilirubin 0.2 mg/dL (0.15-1.2); Total Protein 6.7 g/dL (6.6-8.7)
[2023-05-04] MEDS: dextrose 5% 250 ML 75 ML IV (12:05)
[2023-05-04] MEDS: palonosetron 0.25 mg/5 mL SDV IVP (12:05)
[2023-05-04] MEDS: fluorouraciL 3,800 MG, elastomeric pump 1 PUMP in sodium chloride 0.9% (100 ml) 16 ML IV (15:28)
[2023-05-06] MEDS: sodium chloride 0.9% 250 ML 999 ML IV (13:58)
[2023-05-06] MEDS: ondansetron 2 mg/ML SDV 2 mL 8 MG IVP (13:59)
[2023-05-06 14:07] VITALS: BP 111/79; PULSE 77; RESP 18; TEMP 36.7; O2SAT 97
[2023-05-06 14:08] VITALS: BP 124/78; PULSE 78; RESP 18; TEMP 36.4; O2SAT 98
[2023-05-19 09:24] VITALS: BP 114/77; PULSE 81; RESP 16; TEMP 36.6; O2SAT 99; BMI 24.9
[2023-05-19 09:41] LABS: Basophils # 0.1 10^3/uL (0.0-0.1); Basophils % 1.1 %; Eosinophils # 0.1 10^3/uL (0.0-0.8); Eosinophils % 2.4 %; Hematocrit 37.9 % (36-47); Lymphocytes # 1.6 10^3/uL (0.8-4.8); Lymphocytes % 34.6 %; Mean Corpuscular HGB Conc 32.2 g/dL (30-55); Mean Corpuscular Hemoglobin 30.2 pg (27-33); Mean Corpuscular Volume 93.8 fl (85-98); Mean Platelet Volume 10.2 fL (7.4-10.4); Monocytes # 0.6 10^3/uL (0.2-0.9); Monocytes % 11.9 %; Neutrophils # 2.29 10^3/uL (1.8-7.7); Neutrophils % 49.6 %; Nucleated Red Blood Cells % 0 %; Platelet Count 154 10^3/cmm (157-399); Red Blood Count 4.04 10^6/uL (3.85-5.65); Red Cell Distribution Width 13.6 % (12.1-15.1); White Blood Count 4.62 10^3/uL (3.29-11.43)
[2023-05-19 10:07] LABS: Alanine Aminotransferase 21 U/L (0-33); Alkaline Phosphatase 102 U/L (35-105); Aspartate Amino Transferase 25 U/L (0-32); Blood Urea Nitrogen 9 mg/dL (6-20); Calcium 9.1 mg/dL (8.5-10.5); Carbon Dioxide 25 mmol/L (22-29); Chloride 105 mmol/L (98-107); Globulin 2.8 g/dL (1.3-4.6); Glomerular Filtration Rate 90.9 mL/min (90-130); Glucose 91 mg/dL (65-115); Osmolality Calculated 288 mOsm/kg (285-295); Sodium 140 mmol/L (136-145); Total Bilirubin 0.2 mg/dL (0.15-1.2); Total Protein 6.8 g/dL (6.6-8.7)
[2023-05-19 10:28] LABS: Anion Gap 13.9 (5-19); Potassium 3.9 mmol/L (3.5-5.1)
[2023-05-19] MEDS: dextrose 5% 250 ML 75 ML IV (11:17)
[2023-05-19] MEDS: palonosetron 0.25 mg/5 mL SDV IVP (11:21)
[2023-05-19] MEDS: fluorouraciL 3,800 MG, elastomeric pump 1 PUMP in sodium chloride 0.9% (100 ml) 16 ML IV (12:58)
[2023-05-19 13:05] VITALS: BP 129/83; PULSE 67; RESP 16; TEMP 36.2; O2SAT 99
[2023-05-21] MEDS: ondansetron 2 mg/ML SDV 2 mL 8 MG IVP (12:38)
[2023-05-21] MEDS: sodium chloride 0.9% 1,000 ML 999 ML IV (12:38)
[2023-05-21 14:15] VITALS: BP 111/79; PULSE 79; RESP 18; TEMP 36.3; O2SAT 99
== END 2023-05-24 23:59 | disposition home or self-care (01) ==
PROVIDERS: Nurse Practitioner Family; PCP Nurse Practitioner Family; Visit Provider Specialist
DX: C18.7 Malignant neoplasm of sigmoid colon; Z53.9 Procedure and treatment not carried out, unspecified reason
CPT/HCPCS: 80053; 82378; 85025; 96360; 96365; 96367; 96368; 96375; 96413; 96415; 96416; 96523; J0640; J1100; J1642; J2405; J2469; J7030; J7040; J7060; J9190; J9263

== ENCOUNTER 2023-06-17 10:45 | Oncology outpatient (recurring) (ONCR) | payer MEDICAID, SELFPAY ==
[2023-06-17 11:17] VITALS: BP 129/81; PULSE 78; RESP 16; TEMP 36.3; O2SAT 100
[2023-06-17 11:24] LABS: Basophils # 0.1 10^3/uL (0.0-0.1); Basophils % 0.9 %; Eosinophils # 0.1 10^3/uL (0.0-0.8); Hematocrit 38.8 % (36-47); Lymphocytes # 1.5 10^3/uL (0.8-4.8); Lymphocytes % 28.1 %; Mean Corpuscular HGB Conc 32.2 g/dL (30-55); Mean Corpuscular Hemoglobin 30.7 pg (27-33); Mean Corpuscular Volume 95.3 fl (85-98); Mean Platelet Volume 9.9 fL (7.4-10.4); Monocytes # 0.5 10^3/uL (0.2-0.9); Monocytes % 9.5 %; Neutrophils # 3.24 10^3/uL (1.8-7.7); Nucleated Red Blood Cells % 0 %; Platelet Count 176 10^3/cmm (157-399); Red Blood Count 4.07 10^6/uL (3.85-5.65); Red Cell Distribution Width 13.9 % (12.1-15.1); White Blood Count 5.49 10^3/uL (3.29-11.43)
[2023-06-17 11:50] LABS: Carcinoembryonic Antigen 2.1 ng/mL (0.0-4.7)
[2023-06-17 12:01] LABS: Alanine Aminotransferase 18 U/L (0-33); Alkaline Phosphatase 97 U/L (35-105); Anion Gap 14.2 (5-19); Aspartate Amino Transferase 24 U/L (0-32); Blood Urea Nitrogen 8 mg/dL (6-20); Calcium 9.5 mg/dL (8.5-10.5); Carbon Dioxide 27 mmol/L (22-29); Chloride 104 mmol/L (98-107); Glomerular Filtration Rate 77.9 mL/min (90-130); Glucose 97 mg/dL (65-115); Osmolality Calculated 290 mOsm/kg (285-295); Potassium 4.2 mmol/L (3.5-5.1); Sodium 141 mmol/L (136-145); Total Bilirubin 0.2 mg/dL (0.15-1.2)
[2023-06-17 14:04] LABS: Estradiol 47.1 pg/mL; Follicle Stimulating Hormone 61.4 mIU/mL; Luteinizing Hormone 59.6 mIU/mL (0.5-41.7)
== END 2023-06-24 23:59 | disposition home or self-care (01) ==
PROVIDERS: Internal Medicine Medical Oncology; PCP Nurse Practitioner Family; Visit Provider Specialist
DX: Z45.1 Encounter for adjustment and management of infusion pump (principal); C18.7 Malignant neoplasm of sigmoid colon; Z51.11 Encounter for antineoplastic chemotherapy; D64.9 Anemia, unspecified; Z79.899 Other long term (current) drug therapy
CPT/HCPCS: 36415; 80053; 82378; 82670; 83001; 83002; 85025

== ENCOUNTER 2023-07-23 13:12 | Oncology outpatient (recurring) (ONCR) | payer MEDICAID, SELFPAY | END 2023-07-23 23:59 | disposition home or self-care (01) | PROVIDERS: PCP Nurse Practitioner Family; Visit Provider Specialist | DX: Z45.2 Encounter for adjustment and management of vascular access device (principal) | CPT/HCPCS: 96523; J1642 ==